=== PATIENT | female | born 1945 | race Two or more races ===

== ENCOUNTER → 2017-07-26 15:15 | Outpatient (CLI) | payer MEDICARE, OTHER, SELFPAY ==
[2017-07-26 17:50] LABS: Rheumatoid Factor < 10.0 IU/mL (<15)
[2017-07-26 18:05] LABS: Erythrocyte Sedimentation Rate 20 mm/hr (0-30)
[2017-07-30 15:21] LABS: CCP IgG Antibodies 4 units (0-19); HEPATITIS B SURFACE AG Negative (Negative); Hep B Surface Antibodies Non Reactive (.); Hep C Antibodies <0.1 s/co ratio (0.0-0.9)
[2017-07-30 15:56] LABS: ANTINUCLEAR ANTIBODIES DIRECT Negative (Negative)
== END ==
PROVIDERS: Visit Provider Internal Medicine Rheumatology
DX: M06.4 Inflammatory polyarthropathy (principal); M17.0 Bilateral primary osteoarthritis of knee; I10 Essential (primary) hypertension; Z94.0 Kidney transplant status
CPT/HCPCS: 36415; 85652; 86038; 86200; 86431; 86706; 86803; 87340

== ENCOUNTER → 2017-07-26 17:36 | Outpatient (CLI) | payer MEDICARE, OTHER, SELFPAY ==
[2017-07-26 17:39] LABS: Pathologist Comment May follow
[2017-07-26 20:57] LABS: RBC /Synovial Fluid 0.063 10^6/uL (0); Synovial Fld Mononuclear WBC % 70.1 %; Synovial Fld Polynuclear WBC # 0.061 10^3/ul; Synovial Fld Polynuclear WBC % 29.9 %
[2017-07-26 20:58] LABS: AUTO B FLUID DILUENT BKGD CT WBC <0.1 RBC <0.01 (W<.1,R<.01); Source / Synovial Fluid RT KNEE
[2017-07-26 20:59] LABS: Appearance /Synovial Fluid Cloudy (CLEAR); Color / Synovial Fluid Red (Pale Yellow); Viscosity / Synovial Fluid Sl. Viscous (HIGH)
[2017-07-26 21:26] LABS: Source- Body Fluid SYNOVIAL
[2017-07-26 21:27] LABS: CRYSTALS, BODY FLUID Other, see comment
[2017-07-26 22:06] LABS: Lymph 30 %; Monocyte /Synovial Fluid 9 %; Neutrophil 26 % (0-25)
[2017-07-26 22:08] LABS: Other Cell /Synovial Fluid 35 %
[2017-07-26 22:09] LABS: Body Fluid QC Type(s) BF1Q,BF2Q
[2017-07-30 12:52] LABS: Pathologist Review Reviewed
== END ==
PROVIDERS: Visit Provider Internal Medicine Rheumatology
DX: M06.4 Inflammatory polyarthropathy (principal); M17.0 Bilateral primary osteoarthritis of knee; I10 Essential (primary) hypertension; Z94.0 Kidney transplant status
CPT/HCPCS: 36415; 85652; 86038; 86200; 86431; 86706; 86803; 87070; 87075; 87205; 87340; 89050; 89051; 89060

== ENCOUNTER → 2017-10-02 13:40 | Outpatient (CLI) | payer MEDICARE, OTHER, SELFPAY ==
--- NOTE | 2017-10-02 13:40 | DT_ITS ---
This patient was seen during an EMR downtime September 30, 2017 - October 07, 2017. This patient may have a combination of paper and electronic documentation or all paper documentation. All documentation is viewable within the e-chart portion of [facility] for each patient visit.
[2017-10-07 12:46] LABS: AUTO B FLUID DILUENT BKGD CT WBC <0.1 RBC <0.01 (W<.1,R<.01); Source- Body Fluid OTHER
[2017-10-07 12:47] LABS: Neutrophil 18 % (0-25); RBC /Synovial Fluid 0.022 10^6/uL (0); Synovial Fld Mononuclear WBC # 0.113 10^3/ul; Synovial Fld Mononuclear WBC % 65.7 %; Synovial Fld Polynuclear WBC # 0.059 10^3/ul; Synovial Fld Polynuclear WBC % 34.3 %
[2017-10-07 12:48] LABS: Lymph 58 %; Monocyte /Synovial Fluid 20 %; Other Cell /Synovial Fluid 4 %
[2017-10-09 13:43] LABS: Pathologist Review Reviewed
[2017-10-09 13:49] LABS: Pathologist Comment Reviewed
== END ==
PROVIDERS: Visit Provider Internal Medicine Rheumatology
DX: M06.4 Inflammatory polyarthropathy (principal); M17.0 Bilateral primary osteoarthritis of knee; I10 Essential (primary) hypertension; Z94.0 Kidney transplant status
CPT/HCPCS: 87070; 87075; 87205; 89050; 89051; 89060

== ENCOUNTER → 2018-01-24 16:10 | Outpatient (CLI) | payer MEDICARE, OTHER, SELFPAY ==
[2018-01-24 16:32] LABS: Pathologist Comment May follow
[2018-01-24 17:18] LABS: RBC /Synovial Fluid 0.009 10^6/uL (0); Synovial Fld Mononuclear WBC % 73.1 %; Synovial Fld Polynuclear WBC # 0.049 10^3/ul; Synovial Fld Polynuclear WBC % 26.9 %
[2018-01-24 19:29] LABS: AUTO B FLUID DILUENT BKGD CT WBC <0.1 RBC <0.01 (W<.1,R<.01); Source / Synovial Fluid RT KNEE; Source- Body Fluid SYNOVIAL
[2018-01-24 19:30] LABS: Body Fluid QC Type(s) BF1Q,BF2Q; Viscosity / Synovial Fluid Sl. Viscous (HIGH)
[2018-01-24 19:31] LABS: Appearance /Synovial Fluid Cloudy (CLEAR); Color / Synovial Fluid Pink (Pale Yellow)
[2018-01-24 20:57] LABS: Lymph 56 %; Monocyte /Synovial Fluid 44 %
[2018-01-28 09:20] LABS: Pathologist Review Reviewed
== END ==
PROVIDERS: Referring Provider Internal Medicine Rheumatology; Visit Provider Internal Medicine Rheumatology
DX: M06.4 Inflammatory polyarthropathy (principal); M17.0 Bilateral primary osteoarthritis of knee; I10 Essential (primary) hypertension; Z94.0 Kidney transplant status
CPT/HCPCS: 87070; 87075; 87205; 89050; 89051; 89060

== ENCOUNTER → 2020-05-20 | Outpatient (CLI) | payer MEDICARE, OTHER, SELFPAY ==
[2020-05-20 17:44] LABS: Pathologist Comment May follow
[2020-05-20 18:46] LABS: RBC /Synovial Fluid 0.082 10^6/uL (0); Synovial Fld Mononuclear WBC % 49.1 %; Synovial Fld Polynuclear WBC # 0.084 10^3/uL; Synovial Fld Polynuclear WBC % 50.9 %
[2020-05-20 21:03] LABS: AUTO B FLUID DILUENT BKGD CT WBC <0.1 RBC <0.01 (W<.1,R<.01); Source- Body Fluid SYNOVIAL
[2020-05-20 21:04] LABS: Appearance /Synovial Fluid Turbid (CLEAR); Color / Synovial Fluid Red (Pale Yellow); Source / Synovial Fluid LEFT KNEE
[2020-05-20 21:06] LABS: Lymph 28 %; Monocyte /Synovial Fluid 16 %; Other Cell /Synovial Fluid 3 %
[2020-05-20 21:09] LABS: Body Fluid QC Type(s) BF1Q, BF2Q
[2020-05-20 21:11] LABS: Neutrophil 53 % (0-25)
[2020-05-23 13:16] LABS: Pathologist Review Reviewed
== END | disposition home or self-care (01) ==
PROVIDERS: Referring Provider Internal Medicine Rheumatology; Visit Provider Internal Medicine Rheumatology
DX: M06.4 Inflammatory polyarthropathy (principal); M17.0 Bilateral primary osteoarthritis of knee; I10 Essential (primary) hypertension; Z94.0 Kidney transplant status
CPT/HCPCS: 87070; 87075; 87205; 89050; 89051; 89060